=== PATIENT | female | born 1980 | race Hispanic/Latino ===

== ENCOUNTER 2018-09-22 11:41 | Emergency (ER) | payer OTHER ==
[2018-09-22] MEDS ORDERED: LIDOCAINE HCL-MPF 1% 2ML VIAL ONE (12:21)
[2018-09-22] MEDS ORDERED: KETOROLAC TROMETHAMINE 60 MG/2 ML VIAL ONE (12:21)
[2018-09-22] MEDS ORDERED: CEFTRIAXONE SODIUM 1 GM ONE (12:21)
== END 2018-09-22 12:54 | disposition home or self-care (01) ==
LOC: EDH 11:41
DX: K02.9 Dental caries, unspecified (principal); R68.84 Jaw pain; Z90.49 Acquired absence of other specified parts of digestive tract; Z72.0 Tobacco use
CPT/HCPCS: 96372 ×2; 99284; J0696; J1885; J3490